=== PATIENT | male | born 1935 | race Caucasian/White ===

== ENCOUNTER 2016-09-30 15:26 | Inpatient (IN) | payer OTHER ==
--- NOTE | 2016-09-30 18:01 | HISTORY AND PHYSICAL ---
CHIEF COMPLAINT: Nausea, vomiting, diarrhea for the last 2 days. HISTORY OF PRESENT ILLNESS: He is an 80-year-old white gentleman was seen in my office today with above symptoms for the last 2 days. He was brought in by his friend. He was extremely dizzy, he was orthostatic. He is afebrile. He did take some shrimp gumbo 2 days ago. No prior history of antibiotics. Flat/upright of the abdomen with chest nothing acute. No bowel obstruction. Subsequent workup sodium 134, potassium 3.3, white cell count 17,000. He has been admitted to the hospital for gastroenteritis and also elevated white cell count, needs IV fluids. As a result a hospital admission was warranted. 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 PAST SURGICAL HISTORY: Tonsillectomy, bilateral cataract surgery, kyphoplasty at T12. MEDICINES: Aspirin 81 mg daily, lisinopril/hydrochlorothiazide 20/12.5 daily, Mobic 15 daily, Norvasc 10 daily, Prilosec 40 daily, Toprol-XL 200 mg daily. ALLERGIES: Not known. SOCIAL HISTORY: Single, no children, retired, living in [place]. No smoking. Socially drinks alcohol. FAMILY HISTORY: Father of natural causes. Mom of heart failure. HEALTH MAINTENANCE: Flu shot is declined. Last prostate and PSA exam 2016. Colonoscopy 08/2014. REVIEW OF SYSTEMS: HEENT: No headache. Slightly dizzy, recently cryoablation done on the scalp for the actinic lesion. No earache, no sore throat. Neck: No goiter. No lymphadenopathy. No bruit. Cardiopulmonary: No chest pain, shortness of breath, PND, orthopnea. GI: Nausea, vomiting, abdominal cramp, diarrhea, no bloody stool. : No history of hesitancy, frequency. Extremities: No swelling of legs. Joint pains in both knees. Neurologic: No obvious focal symptoms like weakness or seizures. PHYSICAL EXAMINATION: VITAL SIGNS: Afebrile. Orthostatic, unable to ambulate, dizzy, postural hypotension. HEENT: Atraumatic, normocephalic. Pupils equal, react to light. TMs are normal. Dry mucous membranes. NECK: Supple. JVD is normal. CHEST: Kyphotic. HEART: Sounds are regular. Slightly tachycardic. BELLY: Soft, protuberant, no signs of peritonitis. EXTREMITIES: No peripheral edema or cyanosis. NEURO: No obvious neurological deficits. INVESTIGATIONS: SMA 7, sodium 134, potassium 3.3, BUN 12, creatinine 0.7. Glucose 148. Anion gap is 18. LFTs were normal. CBC. White cell count 17, hematocrit 47, platelets 228 ASSESSMENT AND PLAN: An 80-year-old white gentleman admitted to the hospital with gastroenteritis symptoms associated with dehydration, hypotension, elevated white cell count. Plan is IV fluids 125 an hour. Hold the blood pressure medicine, replace the potassium. Elevated white cell count. Continue to monitor. Stool studies and symptomatic treatment Phenergan, Zofran for nausea, Bentyl for diarrhea and DVT GI prophylaxis with Lovenox and Protonix respectively. Follow up on the clinical course. MTDD
[2016-09-30] MEDS ORDERED: ZOFRAN IV PRN (18:06)
[2016-09-30] MEDS ORDERED: NS 1,000 ML IV SCH (18:15)
[2016-09-30] MEDS ORDERED: SODIUM CHLORIDE 0.9% INJ SCH (18:15)
[2016-09-30] MEDS: PROTONIX IV SCH (18:46)
[2016-09-30] MEDS ORDERED: TYLENOL PM PO SCH (21:00)
[2016-09-30] MEDS: BENTYL PO SCH (22:08)
[2016-09-30] MEDS ORDERED: TYLENOL PM PO PRN (22:39)
[2016-10-01 06:10] LABS: MANUAL DIFF NEEDED? NO
[2016-10-01 06:15] LABS: BASO% 0.2 % (0.0-0.8); EOS# 0.19 X1000 (0.0-0.7); EOS% 1.2 % (0.0-10.0); IMM GRAN# 0.06 X1000 (0.0-0.04); IMM GRAN% 0.4 % (0.0-0.5); LYMPH# 3.15 X1000 (1.2-3.4); LYMPH% 19.4 % (20.5-51.1); MCH 30.3 PG (27-31); MCHC 36.1 g/dL (33-37); MCV 83.9 FL (81-99); MONO# 1.73 X1000 (0.11-0.59); MONO% 10.6 % (1.7-9.3); MPV 8.7 FL (7.4-10.4); NEUT% 68.2 % (42.2-75.2); PLT 496 X1000 (130-400); RBC 4.29 XMIL (4.7-6.1)
[2016-10-01 06:39] LABS: AGAP 14; ALBUMIN 3.5 g/dL (3.5-5.0); ALKALINE PHOSPHATASE 51 U/L (32-122); AMYLASE 25 U/L (20-200); BUN 20 mg/dL (8-22); CHLORIDE 89 mmol/L (98-107); COSMO 258; GOT 13 U/L (10-34); GPT 9 U/L (10-44); POTASSIUM 3.2 mmol/L (3.5-5.1); SODIUM 127 mmol/L (136-145); TCO2 24 mmol/L (25-35); TOTAL BILIRUBIN 0.77 mg/dL (0.20-1.00); TOTAL PROTEIN 5.9 g/dL (6.3-8.3)
--- NOTE | 2016-10-01 08:22 | PROGRESS NOTE ---
DATE: 10/01/2016 SUBJECTIVE: I am seeing the patient in Dr. Vogel's absence. Patient says overall, he is feeling some better. He says he has been noted in the past to have hyponatremia. He has had no nausea or vomiting or diarrhea since admission. OBJECTIVE: Vital Signs: Afebrile. Pulse 88, respirations 18, blood pressure 117/68, O2 saturation on room air 92-93%. No bowel movements. CV: RRR. Lungs: Distant breath sounds. CTA. Abdomen: Soft, active bowel sounds. Nondistended and nontender. Extremities: No edema. LABORATORY DATA: White count is elevated at 16.26, hemoglobin 13, hematocrit 36, platelets 496,000. Neutrophils 68, lymphocytes 19, sodium 127, potassium 3.2, chloride 89, CO2 24, BUN 20, creatinine 0.9, glucose 99, calcium 8.0, total bilirubin 0.77, AST 13, ALT 9, alkaline phosphatase 51, total protein 5.9, albumin 3.5, amylase 25. No stool studies have been able to be collected. ASSESSMENT: 1. Acute gastroenteritis. Rule out bacterial source in light of gumbo that he had eaten. 2. Hyponatremia. 3. Hypokalemia. 4. Hypertension. 5. Osteoarthritis. PLAN: At this time, we will continue to hydrate the patient with saline while holding his blood pressure medicines. We will replete potassium. Continue Bentyl and IV Protonix. Collect stool specimen if he is able to produce one. Continue prophylaxis of DVT with Lovenox.
[2016-10-01] MEDS: BENTYL PO SCH ×4 (09:00→22:43)
[2016-10-01] MEDS: LOVENOX SUBQ SCH (09:00)
[2016-10-01] MEDS: POTASSIUM CHLORIDE 40 MEQ in NS 1,000 ML IV SCH ×3 (10:10→22:42)
[2016-10-01] MEDS: OXYCONTIN PO SCH ×2 (13:14→22:42)
[2016-10-01] MEDS: PROTONIX IV SCH (17:21)
[2016-10-02] MEDS: OXYCONTIN PO SCH (07:47)
[2016-10-02] MEDS: LOVENOX SUBQ SCH (09:21)
[2016-10-02] MEDS: BENTYL PO SCH ×2 (09:21→16:10)
[2016-10-02 10:05] LABS: MANUAL DIFF NEEDED? NO
[2016-10-02 10:08] LABS: BASO% 0.6 % (0.0-0.8); EOS# 0.33 X1000 (0.0-0.7); HEMATOCRIT 34.1 % (42.0-52.0); HEMOGLOBIN 12.1 g/dL (14.0-18.0); IMM GRAN# 0.04 X1000 (0.0-0.04); IMM GRAN% 0.4 % (0.0-0.5); LYMPH% 15.6 % (20.5-51.1); MCH 30.6 PG (27-31); MCHC 35.5 g/dL (33-37); MCV 86.1 FL (81-99); MONO# 0.87 X1000 (0.11-0.59); MPV 8.6 FL (7.4-10.4); NEUT% 72.4 % (42.2-75.2); PLT 450 X1000 (130-400); RBC 3.96 XMIL (4.7-6.1)
[2016-10-02 10:26] LABS: AGAP 14; BUN 12 mg/dL (8-22); CALCIUM 7.3 mg/dL (8.8-10.2); CHLORIDE 93 mmol/L (98-107); COSMO 258; POTASSIUM 3.8 mmol/L (3.5-5.1); SODIUM 129 mmol/L (136-145); TCO2 22 mmol/L (25-35)
[2016-10-02 12:38] VITALS: BP 113/72
[2016-10-02] MEDS ORDERED: POTASSIUM CHLORIDE 40 MEQ in NS 1,000 ML IV SCH (15:00)
--- NOTE | 2016-10-03 21:16 | DISCHARGE SUMMARY ---
ADMISSION DATE: 09/30/2016 DISCHARGE DATE: 10/02/2016 DISCHARGING DIAGNOSIS: Gastroenteritis associated with dehydration. SECONDARY DIAGNOSIS: 1. Hyponatremia, hypokalemia due to dehydration. 2. Hypertension. 3. Osteoarthritis. 4. History of psoriasis. 5. 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 BRIEF HISTORY: Please see the H and P that was done on 09/30/2016. In brief, he is an 80-year- old, white gentleman, admitted to the hospital with nausea, vomiting, diarrhea after having gumbo shrimp. He was dehydrated, hypotensive, admitted to the hospital with a sodium 123, potassium 3.2, elevated white cell count. HOSPITAL COURSE: He was given IV fluids and symptomatic treatment. Follow up hydration, his symptoms were improved. Dr. Fajardo discharged the patient in a safe condition. LABORATORY DATA: White cell count came back at 10, hematocrit 34, platelet count 450,000. Sodium 129, potassium 3.8, chloride 93, BUN 12, creatinine 0.6. LFTs were normal. DISCHARGE INSTRUCTIONS ARE FOLLOWS:: Continue a bland diet for the next 1 week. Continue the probiotics as directed. We will resume the medications slowly: Mobic, OxyContin, Toprol 20 mg daily, amlodipine 10 daily, lisinopril 20/12.5 daily, methocarbamol Robaxin 750 daily and Zofran as needed for nausea. Follow up in my office in 10 days.
== END 2016-10-02 15:35 | disposition home or self-care (01) | DRG 641 ==
LOC: DIRADM 15:26 → 4N 16:59
PROVIDERS: ADMIT Internal Medicine; ATTEND Internal Medicine
DX: E87.1 Hypo-osmolality and hyponatremia (principal); E86.0 Dehydration; K52.9 Noninfective gastroenteritis and colitis, unspecified; E87.6 Hypokalemia; I10 Essential (primary) hypertension; L40.9 Psoriasis, unspecified; M17.0 Bilateral primary osteoarthritis of knee; M81.0 Age-related osteoporosis without current pathological fracture; Z79.82 Long term (current) use of aspirin; Z79.899 Other long term (current) drug therapy; Z79.1 Long term (current) use of non-steroidal anti-inflammatories (NSAID)
CPT/HCPCS: 80048; 80053; 82150; 85025; C9113; J1650; J2405; J3480; J7030; S0164